=== PATIENT | female | born 1990 | race Caucasian/White ===

== ENCOUNTER → 2017-01-22 12:50 | Outpatient (CLI) | payer MEDICAID ==
[2015-12-06 07:51] VITALS: BMI 26.1
[~2017-01-22 12:50] MED LIST: ACETAMINOPHEN500 M1 PO; BENADRYL25 MG PO; FERROUS SULFAT325 MG PO; HYDROCODON-ACE1 EAC7 PO; IBUPROFEN600 MG PO; VALTREX1000 MG PO
== END | disposition home or self-care (01) ==
LOC: D.LDO 12:50
DX: Z34.90 Encounter for supervision of normal pregnancy, unspecified, unspecified trimester (principal)

== ENCOUNTER 2017-02-06 16:17 | Outpatient (CLI) | payer MEDICAID ==
[2015-12-06 07:51] VITALS: BMI 26.1
[2017-02-06 17:28] LABS: APPEARANCE CLEAR (CLEAR); BILIRUBIN NEGATIVE (NEGATIVE); COLOR YELLOW (YELLOW); GLUCOSE NEGATIVE (NEGATIVE); KETONE NEGATIVE (NEGATIVE); LEUKOCYTE ESTERASE NEGATIVE (NEGATIVE); NITRITE NEGATIVE (NEGATIVE); PROTEIN NEGATIVE (NEGATIVE); SPECIFIC GRAVITY 1.015 (1.005-1.020); UROBILINOGEN NORMAL (NORMAL)
== END 2017-02-06 20:07 | disposition home or self-care (01) ==
LOC: D.LDO 16:17
PROVIDERS: Obstetrics & Gynecology
DX: Z34.83 Encounter for supervision of other normal pregnancy, third trimester (principal); Z3A.35 35 weeks gestation of pregnancy; R51 Headache; M54.9 Dorsalgia, unspecified

== ENCOUNTER 2017-02-12 02:51 | Inpatient (IN) | payer MEDICAID ==
[~2017-02-12] VITALS: Ht 165.1 cm; Wt 78.2 kg
[2017-02-12 03:36] LABS: APPEARANCE CLEAR (CLEAR); BILIRUBIN NEGATIVE (NEGATIVE); COLOR YELLOW (YELLOW); GLUCOSE NEGATIVE (NEGATIVE); KETONE NEGATIVE (NEGATIVE); LEUKOCYTE ESTERASE NEGATIVE (NEGATIVE); NITRITE NEGATIVE (NEGATIVE); PROTEIN NEGATIVE (NEGATIVE); UROBILINOGEN NORMAL (NORMAL)
[2017-02-12 03:42] LABS: UDS - AMPHET NEGATIVE QUAL (NEGATIVE); UDS - BARB NEGATIVE QUAL (NEGATIVE); UDS - BENZO NEGATIVE QUAL (NEGATIVE); UDS - COCAINE NEGATIVE QUAL (NEGATIVE); UDS - METH NEGATIVE QUAL (NEGATIVE); UDS - OPIATE NEGATIVE QUAL (NEGATIVE); UDS - PCP NEGATIVE QUAL (NEGATIVE); UDS - THC NEGATIVE QUAL (NEGATIVE)
[2017-02-12 06:59] LABS: HEMATOCRIT 38.1 % (36.0-48.0); HEMOGLOBIN 13.8 g/dL (12-16); MCHC 36.2 g/dL (31.0-37.0); MCV 93.8 fL (80.0-100.0); MEAN PLATELET VOLUME 9.9 fL (7.4-10.4); RBC 4.06 10x6/uL (4.00-5.40); RDW 11.8 % (11.5-14.5); WBC 11.2 10x3/uL (4.8-10.8)
--- NOTE | 2017-02-12 10:35 | NUR ---
ROUNDS MADE. PT LYING IN BED RESTING. REPORTS ABD CRAMPING. MOTRIN OFFERED. PT ACCEPTS. SEE EMAR. LARGE CUP CRANGRAPE JUICE SERVED. PT REPORTS VOIDING AGAIN LARGE AMOUNTS OF URINE. NO CLOTS NOTED. PT REQUEST LIGHTS TO BE TURNED DOWN SO SHE MAY REST. NO FURTHER NEEDS VOICED AT THIS TIME.
--- NOTE | 2017-02-12 10:38 | NUR ---
ROUNDS MADE. PT AA&O X4. PAIN AND NEEDS ASSESSED. PT REPORTS ABD CRAMPING AND REQUEST CRANGRAPE JUICE TO DRINK. PT MEDICATED W/MOTRIN 600MG AND JUICE SERVED.
--- NOTE | 2017-02-12 11:35 | NUR ---
NBN NURSE TO ROOM W/ FOR MOTHER TO SEE AND FEED. NBN NURSE REPORTS PATIENT STATES SHE IS TOO SLEEPY TO FEED AT THIS TIME. RETURNED TO NBN PER NBN NURSE.
--- NOTE | 2017-02-12 15:13 | NUR ---
PT AMBULATING IN HALLS. REQUEST NORCO FOR PAIN 04/25. NORCO 5/325MG ONE TABD GIVEN. FRESH CRANGRAPE JUICE SERVED. PT REMINDED THAT NOW SHE HAS BEEN GIVEN PAIN MEDICATION, SHE MAY NOT LEAVE THE UNIT. PT VERBALZIES UNDERSTANDING.
--- NOTE | 2017-02-12 15:20 | NUR ---
Pt in bed eating [employer] pizza, infant brought to room by crib. When pt asked about pain she states "it's a lot better now." denies any needs at this time.
--- NOTE | 2017-02-12 17:00 | NUR ---
ROUNDS MADE. PT LYING IN BED W/EYES CLOSED. RESP EVEN. NO DISTRESS NOTED. PT LEFT UNDISTURBED TO ALLOW REST.
--- NOTE | 2017-02-12 18:11 | NUR ---
ROUNDS MADE. PT LYING IN BED ATTEMPTING TO FEED INFANT. PT W/O COMPLAINTS. CRANGRAPE JUICE SERVED PER PT REQUEST.
--- NOTE | 2017-02-12 19:20 | NUR ---
VISITORS AND PT'S CHILDREN IN ROOM FOR VISIT.
--- NOTE | 2017-02-12 20:01 | NUR ---
PT. REQUESTING PAIN MED FOR PAIN THAT SHE RATES A 7 OF 10 ON PAIN SCALE. STATES IT IS BACK AND ABD. SMALL CHILD IN BED WITH PT. ICE WATER AND CRANBERRY JUICE PROVIDED.
[2017-02-12 20:40] VITALS: BP 109/65
--- NOTE | 2017-02-12 20:40 | NUR ---
PT. DROWSY. IN OPEN CRIB AT BEDSIDE. PT. RATES PAIN A 6 OF 10 ON PAIN SCALE ALTHOUGH SHE STATES PAIN HAS IMPROVED. STATES PAIN IS HIP AND BACK PAIN AT THIS TIME AND THAT DR. CARRERA STATED THAT SHE WOULD HAVE SOME DISCOMFORT FOR A WHILE. INFANT IN OPEN CRIB AT BEDSIDE. PT. CONCERNED ABOUT IF SHE GOES TO SLEEP AND INFANT IS IN ROOM. INFORMED THAT SHE COULD NBN ANYTIME SHE WANTED INFANT RETURNED TO NBN. DISCUSSED CONTINUING VITAMINS FOR NEXT 4 WEEKS UNTIL FOLLOWUP APPT. PT. STATED UNDERSTANDING TO ALL. CALL LIGHT WITHIN REACH AND SIDE RAILS UP X 2.
--- NOTE | 2017-02-12 22:04 | NUR ---
LYING ON RT SIDE WITH SMALL BLANKET OVER EYES. RESPIRATIONS REGULAR.
--- NOTE | 2017-02-12 23:25 | NUR ---
PT. CONTINUES TO LIE ON RT SIDE WITH BLANKET OVER EYES. RESPIRATIONS REGULAR. FOB PROVIDED BLANKET AND PILLOW. STATES SHE HAS BEEN SLEEPING WELL.
--- NOTE | 2017-02-13 00:18 | NUR ---
LYING ON RT SIDE WITH EYES CLOSED. RESPIRATIONS REGULAR.
--- NOTE | 2017-02-13 00:30 | NUR ---
PT. CALLED REQUESTING PAIN MEDICATION.
--- NOTE | 2017-02-13 00:34 | NUR ---
BACK TO ROOM WITH PAIN MED. PT. LYING WITH EYES CLOSED AND RESPIRATIONS REGULAR. AWAKENED PT. FOR MED ORDERED. PT. DROWSY AND RATES PAIN A 9 OF 10 AND STATES "IN [place] WHERE EVERYTHING IS TRYING TO GO BACK INTO PLACE." INFORMED NEEDED TO DO ADMIT ASSESSMENT FROM LAST AM THAT DID NOT GET DONE DUE TO QUICK DELIVERY. PT. AND THIS NURSE AGREE THAT ASSESSMENT WILL BE DONE WITH PT. AWAKENS IN AM. FOB SLEEPING ON SOFA.
--- NOTE | 2017-02-13 00:59 | NUR ---
LYING ON BACK WITH RESPIRATIONS REGULAR. PT. DOES NOT AROUSE WHILE THIS NURSE IN ROOM.
--- NOTE | 2017-02-13 02:51 | NUR ---
ROUNDS MADE. PT RESTING WITH EYES CLOSED. RESPIRATIONS REGULAR, NO S/S OF DISTRESS NOTED. WILL CONT TO MONITOR AND ASSIST PRN.
--- NOTE | 2017-02-13 04:16 | NUR ---
ROUNDS MADE. PT RESTING WITH EYES CLOSED AT THIS TIME. RESPIRATIONS REGULAR, NO S/S OF DISTRESS NOTED. BED IN LOW POSITION WITH UPPER SIDE RAILS RAISED X2. CL AND PHONE WITHIN REACH. WILL CONT TO MONITOR AND ASSIST PRN.
[2017-02-13 06:01] LABS: BASOPHILS 0.2 % (0-2); EOSINOPHILS 1.5 % (0-7); HEMATOCRIT 34.1 % (36.0-48.0); HEMOGLOBIN 12.1 g/dL (12-16); IMMATURE GRANULOCYTES 0.3 % (0-5); LYMPHOCYTES 25.2 % (15-50); MCH 33.7 pg (26.0-34.0); MCHC 35.5 g/dL (31.0-37.0); MEAN PLATELET VOLUME 9.5 fL (7.4-10.4); NEUTROPHILS 64.8 % (40-80); PLATELET COUNT 131 10x3/uL (130-400); RBC 3.59 10x6/uL (4.00-5.40); WBC 8.7 10x3/uL (4.8-10.8)
[2017-02-13] MEDS ORDERED: COLACE100 MG PO (06:04)
[2017-02-13 06:05] VITALS: BP 109/65; Ht 165.1 cm; Wt 78.2 kg
--- NOTE | 2017-02-13 06:18 | NUR ---
ADMIT ASSESSMENT COMPLETED. UNABLE TO COMPLETE WHEN ADMIT ORDER RECEIVED 02/12/17 DUE TO QUICK PROGRESS OF LABOR. PT. DECLINED TO HAVE ASSESSMENT DONE PRIOR TO MIDNIGHT. IN ROOM WITH PT. AND PT. FEEDING . REQUESTED INFANT BE RETURNED TO N FOR NURSE COULD EVAL. AMT. INFANT HAD EATEN. FOB SLEEPING ON SOFA.
--- NOTE | 2017-02-13 06:33 | NUR ---
AMBULATED OFF UNIT WITH FOB. GAIT STEADY.
--- NOTE | 2017-02-13 06:49 | NUR ---
RETURNED TO UNIT AFTER WALKING IN HALLWAY. REQUESTING IBUPROFEN.
[2017-02-13 07:20] LABS: RAPID PLASMA REAGIN Non Reactive (Non Reactive)
[2017-02-13 07:30] VITALS: BP 109/65
--- NOTE | 2017-02-13 07:30 | NUR ---
PATIENT SITTING UP IN HER BED EATING HER BREAKFAST. FOB IS RESTING IN THE BED BESIDE HER. SHE DENIES PAIN. SHE STTES THAT THE NORCO MAKES HER "KIND OF SLEEPY". VSS. NO NEEDS VOICE OR NOTED. ENCOURAGED HER TO CALL FOR ANY NEEDS. INFORMED THAT I WILL CHANGE HER LINENS WHEN SHE IS UP TO THE SHOWER.
--- NOTE | 2017-02-13 10:30 | NUR ---
PATIENT IS RESTING QUIETLY IN HER BED WITH EYES CLOSED. INFANT IN THE NURSERY. FOB IN THE BED BESIDE HER.
--- NOTE | 2017-02-13 10:54 | NUR ---
INFANT TO ROOM FROM NURSERY. HANDED TO PT FOR BOTTLEFEEDING, AFTER CONFIRMING TWO BAND ID MATCH. SIDE RAILS UP X 1, FOB IN ROOM.
--- NOTE | 2017-02-13 10:57 | NUR ---
PATIENT SITTING UP IN HER BED RECEIVENG HER INFANT FROM NURSERY SHE REQUESTS PAIN MEDICATIONS FOR ABDOMINAL CRAMPING. FOB AT THE BEDSIDE. THEY ARE REQUESTING THE DISCHARGE PAPERWORK SO SHE CAN LEAVE TO GO HOME TO CHECK ON HER OTHER CHILDREN AND BUY FIREWORKS.
--- NOTE | 2017-02-13 11:50 | NUR ---
DISUSSED PATIENT'S DISCHARGE INSTRUCTIONS AT LENGTH. SHE VOICED UNDERSTANDING ABOUT PELVIC REST, ACTIVITY LIMITATIONS, MEDICAITONS AND ROOMING IN. PRESCRIPTIONS GIVEN. INSTRUCTED HER TO RETURN FROM HER OUTING AT 2PM TO FEED THE INFANT.
== END 2017-02-13 12:48 | disposition home or self-care (01) | DRG 774 ==
LOC: D.LDO 02:51 → D.LD 06:14
PROVIDERS: Obstetrics & Gynecology; ADMIT Obstetrics & Gynecology
PROC: 10E0XZZ Delivery of Products of Conception, External Approach (ICD-10-PCS; principal; 2017-02-12)
PROC: 0HQ9XZZ Repair Perineum Skin, External Approach (ICD-10-PCS; 2017-02-12)
DX: O60.14X0 Preterm labor third trimester with preterm delivery third trimester, not applicable or unspecified (principal); O98.32 Other infections with a predominantly sexual mode of transmission complicating childbirth; O36.0930 Maternal care for other rhesus isoimmunization, third trimester, not applicable or unspecified; A63.8 Other specified predominantly sexually transmitted diseases; O62.3 Precipitate labor; O99.344 Other mental disorders complicating childbirth; O99.334 Smoking (tobacco) complicating childbirth; Z3A.36 36 weeks gestation of pregnancy; Z37.0 Single live birth